=== PATIENT | male | born 1985 | race American Indian/Alaskan Native ===

== ENCOUNTER 2017-01-11 15:50 | Emergency (ER) | payer MEDICAID, OTHER ==
[2017-01-11 16:15] VITALS: BP 149/87
--- NOTE | 2017-01-11 16:52 | EDM.PDOC ---
ED HPI GENERAL MEDICAL PROBLEM - General Chief Complaint: Lower Extremity Injury/Pain Stated Complaint: L LEG PAIN Time Seen by Provider: 01/11/17 16:35 Source of Information: Reports: Patient History Limitations: Reports: No Limitations - History of Present Illness INITIAL COMMENTS - FREE TEXT/NARRATIVE: 31-year-old male presents for evaluation and treatment of injury to the left knee. Patient reports that he has fallen twice in the last year. This is cause significant knee pain. Most recent fall was approximately one month ago. He was seen at the ER [facility]. X-rays were performed no acute fractures identified. He was instructed to get an MRI. MRI has not been obtained as of yet. Patient reports that the original fall caused him to twist his left leg and he felt a pop. He is currently complaining of pain to the left knee lateral aspects. He has been taking [id number]-sem-[id number] medications for his symptoms but the pain persist. He also feels pressure under the left patella. 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 noon Left Knee Pain Score (Numeric/FACES): 10 - Related Data Allergies Allergy/AdvReac Type Severity Reaction Status Date / Time No Known Allergies Allergy Verified 10/16/14 22:18 Home Meds: Home Meds Hydrochlorothiazide 50 mg PO DAILY 10/16/14 [History] Losartan [Cozaar] 50 mg PO DAILY 10/16/14 [History] traMADol [Ultram] 50 mg PO Q6H PRN #15 tablet 01/11/17 [Rx] Past Medical History Cardiovascular History: Reports: Hypertension Other Musculoskeletal History: chronic bi-lat hip pain Social & Family History - Tobacco Use Smoking Status *Q: Never Smoker - Caffeine Use Caffeine Use: Reports: Soda - Recreational Drug Use Recreational Drug Use: No Review of Systems - Review of Systems Review Of Systems: See Below Musculoskeletal: Reports: Joint Pain (left lateral knee reports pain, reports a pressure under the left patella). Denies: Joint Swelling Skin: Denies: Erythema, Wound Neurological: Reports: Difficulty Walking ED EXAM, GENERAL - Physical Exam Exam: See Below Exam Limited By: No Limitations General Appearance: Alert, WD/WN, No Apparent Distress, Obese Respiratory/Chest: No Respiratory Distress Cardiovascular: Normal Peripheral Pulses, Regular Rate, Rhythm Peripheral Pulses: 2+: Posterior Tibial (L), Posterior Tibial (R), Dorsalis Pedis (L), Dorsalis Pedis (R) Extremities: Normal Inspection, Other (reports pain with palpation to the lateral left knee; difficult to test ligaments due to patient size; reports pain with varus testing, questionable + posterior drawer, - anterior drawer). No: Joint Swelling, Increased Warmth Neurological: Alert, Oriented Psychiatric: Normal Affect, Normal Mood Skin Exam: Warm, Dry, Normal Color. No: Ecchymosis, Erythema Course - Vital Signs Last Recorded V/S: Last Vital Signs Temp 36.7 C 01/11/17 16:13 Pulse 75 01/11/17 16:13 Resp 20 01/11/17 16:13 BP 149/87 H 01/11/17 16:13 Pulse Ox 95 01/11/17 16:13 - Re-Assessments/Exams Free Text/Narrative Re-Assessment/Exam: 01/11/17 17:00 I do not feel xrays are indicated today as he has not had any additional falls and previous xryas were normal. I agree with [facility] he will likely need an MRI. Our MRI has a max of 500lbs. Patient may have to go to [facility] for an MRI if needed. I will have the patient follow-up with ortho and they can help obtain an MRI at another facility. I spoke with [facility] canes and wakers max at 500lbs. The patient will have to come into [facility] and specially order a cane or walker for his size. Given his size I do not feel crutches are a safe option for him. Will discharge home with instructions to follow-up wit ortho and to go to [facility]. Discharge instructions as documented. Departure - Departure Time of Disposition: 17:01 Disposition: Home, Self-Care 01 Condition: Fair Clinical Impression: Knee pain, left - Discharge Information Prescriptions: traMADol [Ultram] 50 mg PO Q6H PRN #15 tablet PRN Reason: Pain Instructions: Knee Pain Referrals: PCP,None [Primary Care Provider] - Marquis Gar MD [Physician] - Forms: ED Department Discharge Additional Instructions: [id number] Tylenol and Motrin as needed for pain relief. For Pain not relieved by Tylenol or Motrin may take tramadol 1 tab every 6 hours for severe pain. Do not drive or operate machinery within 12 hours of taking the tramadol. Tramadol can be habit forming, I recommend you take as few of these as needed to control your pain Go to [facility] the medical supply store and discuss with him options of either cane or walker to help relieve some of the pressure on your knee. They may have to specially order you in a walker or a cane. Follow-up with Dr. Henley. Please call [phone] to schedule with him. You may require an MRI to further evaluate your knee pain. Please return to the ER if your symptoms change or worsen.
== END 2017-01-11 17:25 | disposition home or self-care (01) ==
LOC: JD.ED 15:50
DX: M25.562 Pain in left knee (principal); I10 Essential (primary) hypertension; Z79.899 Other long term (current) drug therapy; X50.1XXA Overexertion from prolonged static or awkward postures, initial encounter
CPT/HCPCS: 99283